=== PATIENT | male | born 1990 | race Caucasian/White ===

== ENCOUNTER 2017-03-07 13:40 | Emergency (ER) | payer OTHER, BC ==
[2017-03-07 13:54] VITALS: BP 148/74; PULSE 87; RESP 18; TEMP 97.3; O2SAT 98
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
== END 2017-03-07 15:01 | disposition home or self-care (01) ==
LOC: CED 13:40
DX: S16.1XXA Strain of muscle, fascia and tendon at neck level, initial encounter (principal); V89.2XXA Person injured in unspecified motor-vehicle accident, traffic, initial encounter
CPT/HCPCS: 72040-PO